=== PATIENT | female | born 1945 | race Caucasian/White ===

== ENCOUNTER → 2016-08-11 | Outpatient (CLI) | payer BC ==
[~2016-08-11] MED LIST: ASPCH81X PO; AZIT500T PO; CARV6.25 PO; CHOLTAB3 PO; CYAN500T PO; LORA-741 PO; SIMV40TA2 PO; SYN50 PO; [UNRECOGNIZED DRUG - OTHER] PO
--- NOTE | 2016-08-11 16:02 | DIAGNOSTIC IMAGING REPORT ---
CHEST 2 VIEWS ROUTINE CLINICAL HISTORY: COUGH COMPARISON STUDY: 12/22/2011 FINDINGS: There are postsurgical changes of midline sternotomy. Surgical clips project over the right upper lung zone. There is no failure. There is no focal pulmonary consolidation. There are no pleural effusions. Degenerative changes are present within the dorsal spine.[ IMPRESSION: No active disease in the chest. Electronically signed by: Bubba Gregg M.D. 08/11/2016 4:00 PM Dictated Date/Time: 08/11/2016 3:59 PM
== END | disposition home or self-care (01) ==
LOC: C.RAD1850 15:22
PROVIDERS: ATTEND Nurse Practitioner Family
DX: R05 Cough (principal)

== ENCOUNTER → 2017-03-18 | Outpatient (CLI) | payer BC ==
[2017-03-18 09:41] LABS: HEMATOCRIT 37.6 % (37-47); MEAN CELL VOLUME 86.6 fL (80-100); MEAN CORPUSCULAR HEMOGLOBIN 28.3 pg (25-34); MEAN CORPUSCULAR HGB CONC 32.7 g/dl (32-36); MEAN PLATELET VOLUME 9.1 fL (7.4-10.4); PLATELET COUNT 195 K/uL (130-400); RED BLOOD COUNT 4.34 M/uL (4.2-5.4); WHITE BLOOD COUNT 4.03 K/uL (4.8-10.8)
[2017-03-18 10:15] LABS: ALT/SGPT 27 U/L (12-78); AST/SGOT 24 U/L (15-37); BLOOD UREA NITROGEN 24 mg/dl (7-18); CALCIUM 9.4 mg/dl (8.5-10.1); CARBON DIOXIDE 29 mmol/L (21-32); CHLORIDE 105 mmol/L (98-107); CHOLESTEROL 158 mg/dl (0-200); CREATININE 0.92 mg/dl (0.60-1.20); GLUCOSE 89 mg/dl (70-99); SODIUM 138 mmol/L (136-145)
[2017-03-18 10:25] LABS: ALB/GLOB RATIO 1.1 (0.9-2); ALKALINE PHOSPHATASE 65 U/L (45-117); CHOLESTEROL/HDL RATIO 4.1; HDL CHOLESTEROL 39 mg/dl; LDL CHOLESTEROL CALCULATED 91 mg/dl; TRIGLYCERIDES 140 mg/dl (0-150); VERY LOW DENSITY LIPOPROT CALC 28 mg/dl
[2017-03-18 13:43] LABS: ESTIMATED AVERAGE GLUCOSE 123 mg/dl; HA1C FLAG Normal (Normal)
== END | disposition home or self-care (01) ==
LOC: C.LAB1850 08:47
PROVIDERS: ATTEND Family Medicine
DX: E78.5 Hyperlipidemia, unspecified (principal); E03.9 Hypothyroidism, unspecified; I25.10 Atherosclerotic heart disease of native coronary artery without angina pectoris; F41.8 Other specified anxiety disorders; I10 Essential (primary) hypertension; R73.03 Prediabetes; R07.89 Other chest pain

== ENCOUNTER → 2017-06-18 | Outpatient (CLI) | payer BC ==
[2017-06-18 13:10] LABS: LYME DISEASE AB IGG NEG (NEG); LYME DISEASE AB IGM NEG (NEG)
== END | disposition home or self-care (01) ==
LOC: C.LAB1850 11:21
PROVIDERS: ATTEND Neuromusculoskeletal Medicine & OMM
DX: T14.90XA Injury, unspecified, initial encounter (principal); W57.XXXA Bitten or stung by nonvenomous insect and other nonvenomous arthropods, initial encounter

== ENCOUNTER → 2017-10-07 | Outpatient (CLI) | payer BC ==
[2017-10-07 10:58] LABS: BASO % 1.3 %; BASO ABS # 0.06 K/uL (0-0.2); EOS % 6.6 %; EOS ABS # 0.31 K/uL (0-0.5); HEMATOCRIT 37.8 % (37-47); HEMOGLOBIN 12.4 g/dL (12.0-16.0); IG# 0.01 K/uL (0.00-0.02); LYMPH % 24.7 %; LYMPH ABS # 1.16 K/uL (1.2-3.4); MEAN CELL VOLUME 85.3 fL (80-100); MEAN CORPUSCULAR HGB CONC 32.8 g/dl (32-36); MEAN PLATELET VOLUME 9.5 fL (7.4-10.4); MONO % 5.7 %; MONO ABS # 0.27 K/uL (0.11-0.59); NEUT % 61.5 %; NEUT ABS # 2.89 K/uL (1.4-6.5); PLATELET COUNT 208 K/uL (130-400); RED CELL DISTRIBUTION WIDTH CV 14.3 % (11.5-14.5); RED CELL DISTRIBUTION WIDTH SD 44.8 fL (36.4-46.3)
[2017-10-07 11:06] LABS: HEMOGLOBIN A1C 5.8 % (4.5-5.6)
[2017-10-07 11:31] LABS: ALBUMIN 4.1 gm/dl (3.4-5.0); ALT/SGPT 21 U/L (12-78); BLOOD UREA NITROGEN 22 mg/dl (7-18); CALCIUM 10.1 mg/dl (8.5-10.1); CARBON DIOXIDE 26 mmol/L (21-32); CHOLESTEROL 166 mg/dl (0-200); CREATININE 0.95 mg/dl (0.60-1.20); GLUCOSE 98 mg/dl (70-99); POTASSIUM 4.1 mmol/L (3.5-5.1); SODIUM 136 mmol/L (136-145)
[2017-10-07 11:37] LABS: ALKALINE PHOSPHATASE 65 U/L (45-117); AST/SGOT 17 U/L (15-37); LDL CHOLESTEROL CALCULATED 97 mg/dl; TOTAL PROTEIN 7.7 gm/dl (6.4-8.2)
== END | disposition home or self-care (01) ==
LOC: C.LAB1850 08:54
PROVIDERS: ATTEND Nurse Practitioner Family
DX: E83.52 Hypercalcemia (principal); E78.5 Hyperlipidemia, unspecified; E03.9 Hypothyroidism, unspecified; R73.03 Prediabetes; I10 Essential (primary) hypertension; K21.0 Gastro-esophageal reflux disease with esophagitis